=== PATIENT | male | born 1975 | race Caucasian/White ===

== ENCOUNTER 2020-12-17 23:51 | Inpatient (IN) | payer MEDICAID, SELFPAY ==
[~2020-12-17] VITALS: Ht 175.3 cm; Wt 68.0 kg
[2020-12-18] VITALS (10 sets, daily range): BP systolic 118–147; BP diastolic 74–95
[2020-12-18 03:24] LABS: ANION GAP 18.6 (8-16); CARBON DIOXIDE 28.3 mmol/L (21-32); CREATININE 1.4 mg/dL (0.6-1.3)
[2020-12-18 03:26] LABS: POTASSIUM 2.9 mmol/L (3.5-5.1)
[2020-12-18] MEDS ORDERED: POTASSIUM CHLORIDE 20% 40 MEQ/15 ML UDC PO ONE (03:35)
[2020-12-18] MEDS ORDERED: NACL 0.9% 1,000 ML IV ONE (03:35)
[2020-12-18] MEDS ORDERED: KCL 20 MEQ/WATER INJ PREMIX 200 ML IV ONE (03:35)
--- NOTE | 2020-12-18 03:47 | NUR ---
PT TAKEN TO BED 5
--- NOTE | 2020-12-18 03:48 | NUR ---
PT BIBA FOR ETOH. PT WAS BOOKED AND ARRESTED MY [employer]. PT WAS RELEASED AND MEDICALLY CLEARED. PT STATED THAT HE DRANK 2 FIFTHS OF VODKA TODAY. PT GROGGY BUT AAOX4 AND ABLE TO ANSWER QUESTIONS. DENIES ANY PAIN OR DISCOMFORT AT THIS TIME. PMH- HTN, CHIRROSIS NKDA
--- NOTE | 2020-12-18 04:20 | NUR ---
IV ACCESS INSERTED ON L AC G20. MEDS GIVEN ORDERED.
[2020-12-18] MEDS: PROPOFOL 1000 MG/100 ML PREMIX 100 ML IV ONE ×2 (04:40→08:10)
[2020-12-18] MEDS ORDERED: ONDA-24 SL (05:46)
[2020-12-18] MEDS ORDERED: POTA-599 PO (05:46)
--- NOTE | 2020-12-18 06:31 | NUR ---
CODE BLUE INITIATED
--- NOTE | 2020-12-18 06:40 | NUR ---
CODE BLUE INITIATED. BAGGED PATIENT WITH 100% FIO2. PT INTUBATED BY MD DR ORTEGA WITH 7.5 ETT AT 24 CM AT LIP. ETT PLACEMENT CONFIRMED BY END TIDAL COLOR CHANGE, BREATH SOUNDS, AND CHEST RISE. PT ON VENTILATOR WITH CHARTED SETTINGS. VENT CONNECTED TO RED OUTLET. ALARMS AUDIBLE. AMBU BAG AT BEDSIDE. ABG DONE WITH NO INCIDENT. RESULTS GIVEN TO MD JANINA ORTEGA. WILL CONTINUE TO MONITOR PATIENT.
[2020-12-18] MEDS ORDERED: EPINEPHrine 1 MG/ML AMP ONE (06:44)
[2020-12-18] MEDS ORDERED: EPINEPHrine 1 mg/mL 3 MG in DEXTROSE 5% 250 ML IV ONE (06:50)
--- NOTE | 2020-12-18 07:05 | NUR ---
RADIOLOGY AT BEDSIDE FOR ET TUBE AND OG TUBE PLACEMENT CHECK
--- NOTE | 2020-12-18 07:26 | NUR ---
ENDORSED TO SERJIO CONLEY FOR CONTINUITY OF CARE
--- NOTE | 2020-12-18 07:29 | NUR ---
NOTIFIED DR CARO, PT IS NOW MOVING ARMS AND HAVE INVOLUNTARY MUSCLE MOVEMENT. NO ORDERS AT THIS TIME.
[2020-12-18] MEDS ORDERED: PROPOFOL 1000 MG/100 ML PREMIX 100 ML IV ONE ×2 (07:35→10:57)
--- NOTE | 2020-12-18 08:30 | NUR ---
KARISHMA SWABBED AND GIVEN TO MANJINDER CARVALHO
[2020-12-18] MEDS ORDERED: ALBUTEROL SULFATE/IPRATROPIU 3 ML SOL IH PRN (08:50)
[2020-12-18] MEDS ORDERED: DOCUSATE SODIUM 100 MG GELCAP PO PRN (08:50)
[2020-12-18] MEDS ORDERED: ZOLPIDEM 5 MG TAB PO PRN (08:50)
[2020-12-18] MEDS ORDERED: guaiFENesin DM 200/20 MG-10 ML 10 ML UDC PO PRN (08:50)
[2020-12-18] MEDS ORDERED: MORPHINE SULFATE 50 MG in NACL 0.9% 45 ML IV PRN (08:50)
[2020-12-18] MEDS ORDERED: ACETAMINOPHEN 325 MG TAB PO PRN (08:50)
[2020-12-18] MEDS ORDERED: ONDANSETRON 4 MG/2 ML VIAL IM/IVP PRN (08:50)
[2020-12-18] MEDS ORDERED: HYDROcodone/APAP 7.5/325 MG 1 TAB PO PRN (08:50)
[2020-12-18] MEDS: DEXT 5% /NACL 0.9% 1,000 ML IV SCH ×2 (09:38→17:14)
[2020-12-18] MEDS: PANTOPRAZOLE 40 MG INJ VIAL IVP SCH (09:39)
--- NOTE | 2020-12-18 10:53 | NUR ---
VERBAL ORDER TO CHANGE CURRENT PRESSOR TO LEVO AND TO KEEP PROPOFOL
[2020-12-18] MEDS: fentaNYL citrate 1 MG in NACL 0.9% 80 ML IV PRN ×3 (11:08→22:00)
[2020-12-18] MEDS: MIDAZOLAM MDV 50 MG in NACL 0.9% 40 ML IV PRN ×2 (11:21→16:14)
[2020-12-18 11:56] LABS: BASOPHILS # (AUTO) 0.1 K/uL (0.00-0.22); BASOPHILS % (AUTO) 0.7 % (0.0-2.0); EOSINOPHILS % (AUTO) 0.2 % (0.0-4.0); HEMOGLOBIN 10.6 g/dL (12.0-18.0); LYMPHOCYTES # (AUTO) 0.6 K/uL (2.0-11.5); LYMPHOCYTES % (AUTO) 7.7 % (20.5-51.1); MEAN CORPUSCULAR HEMOGLOBIN 23 pg (27-31); MEAN CORPUSCULAR HGB CONC 31 g/dL (33-37); MEAN CORPUSCULAR VOLUME 74.7 fL (80-94); MONOCYTES # (AUTO) 0.5 K/uL (0.8-1.0); MONOCYTES % (AUTO) 7.1 % (1.7-9.3); NEUTROPHILS # (AUTO) 6.1 K/uL (1.8-7.7); NEUTROPHILS % (AUTO) 84.3 % (42.2-75.2); PLATELET COUNT (AUTO) 207 K/uL (140-450); RED BLOOD CELL COUNT(AUTO) 4.55 MIL/uL (4.20-6.10); RED CELL DISTRIBUTION WIDTH 26.2 % (11.6-13.7); WHITE BLOOD COUNT (AUTO) 7.2 K/uL (4.8-10.8)
[2020-12-18 12:25] LABS: PROTHROMBIN TIME 18.1 secs (10.8-13.4)
[2020-12-18] MEDS: ALBUTEROL SULFATE/IPRATROPIU 3 ML SOL IH SCH ×2 (13:00→19:00)
[2020-12-18] MEDS ORDERED: PROPOFOL 200 MG/20 ML VIAL IV SCH (13:05)
--- NOTE | 2020-12-18 13:29 | NUR ---
CALLED LAB, WAITING FOR COAGULATION RESULTS BEFORE ADMIN OF HEPARIN. LAB WILL UPDATE RESULTS.
[2020-12-18 14:07] LABS: FREE T4 (FREE THYROXINE) 0.91 ng/dL (0.76-1.46); PHOSPHORUS 4.4 mg/dL (2.5-4.9); THYROID STIMULATING HORMONE 2.29 uIU/mL (0.34-3.74)
--- NOTE | 2020-12-18 15:10 | NUR ---
Patient will be admitted to care of [facility]. Admited to ICU. Will go to rooM 2. Belongings list completed. Report to SHERRILL CONLEY.
--- NOTE | 2020-12-18 15:26 | NUR ---
MOVED PATIENT ON THE VENT TO ROOM 2 IN ICU. PT REMAINED ON VENT DURING TRANSFER - NO DISTRESS NOTED- PT PLACED ON MONITOR IN ROOM -TOLERATED TRANSFER TO ICU
--- NOTE | 2020-12-18 16:00 | NUR ---
RECEIVED REPORT FROM ER NURSE. ADMITTED 45 Y/O MALE WITH A CC OF ETOH ABUSE. ADMITTING DX OF CARDIAC ARREST, HYPOKALEMIA, ETOH TOXICITY. HX OF HTN, LIVER CIRRHOSIS. VACCINATION STATUS UNKNOWN. PT RASS-3, DRY WEIGHT 68KG. FLACC 0, NO SOB. ETT TO VENT ACVC FIO2 40%, TV 450, R 18, PEEP 5. WITH PERIPHERAL IV RH 22 AND LAC 20G. WITH RIGHT FEMORAL CENTRAL LINE RUNNING PROPOFOL AT 30MCG, FENTANYL AT 1.5MCG, AND VERSED AT 5MCG. INSERTED LEMA CATHETER, DRAINING WELL. SAFETY PRECAUTIONS IN PLACE. CALL LIGHT WITHIN REACH
[2020-12-18] MEDS: PROPOFOL 1000 MG/100 ML PREMIX 100 ML IV PRN ×2 (16:09→22:25)
--- NOTE | 2020-12-18 16:55 | NUR ---
PATIENT HAS BEEN SCREENED AND CATEGORIZED HIGH NUTRITION RISK. PATIENT WILL BE SEEN WITHIN 1-2 DAYS OF ADMISSION. 12/18/20-12/19/[address]
--- NOTE | 2020-12-18 18:24 | NUR ---
LATEST BS 284, ON INSULIN DRIP 0.1U/KG/HR Addendum: 12/18/20 at 1845 by John Haywood RN DISREGARD ABOVE NOTE- WRONG PT
--- NOTE | 2020-12-18 18:45 | NUR ---
RASS-3, NO RESPIRATORY DISTRESS, FLACC 0
--- NOTE | 2020-12-18 19:10 | NUR ---
RECEIVED PATIENT FROM AM SHIFT NURSE FOR CONTINUITY OF CARE. RASS -3. ETT TO VENT. RESPIRATIONS EVEN, UNLABORED. NO S/S RESPIRATORY DISTRESS. OGT NOTED. S1/S2 AUSCULTATED. FLACC 0. SKIN WARM, DRY. NON PITTING EDEMA NOTED TO BILATERAL HANDS. ELEVATED FOR COMFORT. SALINE LOCK TO RIGHT HAND 20G PATENT/INTACT. SALINE LOCK TO LEFT AC 20 PATENT/INTACT. RIGHT FEMORAL ACCESS NOTED, INFUSING PROPOFOL, VERSED AND FENTANYL WELL. ABDOMEN SOFT, NONTENDER, NONDISTENDED. BOWEL SOUNDS ACTIVE x4 QUADRANTS. LEMA CATHETER PATENT WITH YELLOW URINE DRAINING TO GRAVITY. PATIENT IS CLEAN/DRY. PLAN OF CARE DISCUSSED. SAFETY PRECAUTIONS IN PLACE.
--- NOTE | 2020-12-18 21:37 | NUR ---
DUE MEDS GIVEN. NO S/S RESPIRATORY DISTRESS. FLACC 0. PATIENT IS CLEAN/DRY.
--- NOTE | 2020-12-18 23:00 | NUR ---
TURNED AND REPOSITIONED FOR COMFORT. NO S/S RESPIRATORY DISTRESS. FLACC 0. PATIENT IS CLEAN/DRY. SAFETY PRECAUTIONS IN PLACE. FREQUENT MONITORING BY ALL STAFF.
[2020-12-19] VITALS (18 sets, daily range): BP systolic 16–136; BP diastolic 34–94
[2020-12-19] MEDS: ALBUTEROL SULFATE/IPRATROPIU 3 ML SOL IH SCH ×4 (00:54→19:00)
--- NOTE | 2020-12-19 01:00 | NUR ---
VAP ORAL CARE RENDERED. NO S/S RESPIRATORY DISTRESS. FLACC 0. PATIENT IS CLEAN/DRY. SAFETY PRECAUTIONS IN PLACE. FREQUENT MONITORING BY ALL STAFF.
[2020-12-19] MEDS: DEXT 5% /NACL 0.9% 1,000 ML IV SCH ×2 (02:17→10:18)
--- NOTE | 2020-12-19 03:16 | NUR ---
RT AT BEDSIDE. NO S/S RESPIRATORY DISTRESS. FLACC 0. PATIENT IS CLEAN/DRY. SAFETY PRECAUTIONS IN PLACE. FREQUENT MONITORING BY ALL STAFF.
[2020-12-19] MEDS: MIDAZOLAM MDV 50 MG in NACL 0.9% 40 ML IV PRN (04:29)
--- NOTE | 2020-12-19 05:09 | NUR ---
ALL NEEDS ANTICIPATED AND MET. NO S/S RESPIRATORY DISTRESS. FLACC 0. PATIENT IS CLEAN/DRY. SAFETY PRECAUTIONS IN PLACE.
[2020-12-19] MEDS: PROPOFOL 1000 MG/100 ML PREMIX 100 ML IV PRN (06:37)
[2020-12-19 07:07] LABS: BASOPHILS # (AUTO) 0.1 K/uL (0.00-0.22); EOSINOPHILS # (AUTO) 0.1 K/uL (0-0.4); EOSINOPHILS % (AUTO) 0.9 % (0.0-4.0); HEMATOCRIT 31.2 % (36-52); HEMOGLOBIN 9.9 g/dL (12.0-18.0); LYMPHOCYTES # (AUTO) 0.5 K/uL (2.0-11.5); LYMPHOCYTES % (AUTO) 8.1 % (20.5-51.1); MEAN CORPUSCULAR HEMOGLOBIN 24 pg (27-31); MEAN CORPUSCULAR HGB CONC 32 g/dL (33-37); MONOCYTES # (AUTO) 0.6 K/uL (0.8-1.0); MONOCYTES % (AUTO) 8.7 % (1.7-9.3); NEUTROPHILS # (AUTO) 5.5 K/uL (1.8-7.7); NEUTROPHILS % (AUTO) 81.3 % (42.2-75.2); PLATELET COUNT (AUTO) 162 K/uL (140-450); RED CELL DISTRIBUTION WIDTH 25.8 % (11.6-13.7); WHITE BLOOD COUNT (AUTO) 6.7 K/uL (4.8-10.8)
--- NOTE | 2020-12-19 07:30 | NUR ---
RECEIVED REPORT FROM EMERGENCY RESPONSE TECHNICIAN NURSE. 45 Y/O MALE WITH A CC OF ETOH ABUSE. ADMITTING DX OF CARDIAC ARREST, HYPOKALEMIA, ETOH TOXICITY. HX OF HTN, LIVER CIRRHOSIS. VACCINATION STATUS UNKNOWN. PT RASS-1, DRY WEIGHT 68KG. AWAKE, ALERT AND FOLLOWS COMMANDS. FLACC 0, NO SOB. ETT TO VENT ACVC FIO2 40%, TV 450, R 18, PEEP 5. WITH PERIPHERAL IV RH 22 AND LAC 20G. WITH RIGHT FEMORAL CENTRAL LINE RUNNING PROPOFOL AT 30MCG, FENTANYL AT 1.5MCG, AND VERSED AT 5MCG. LEMA CATHETER DRAINING WELL. PLAN FOR SEDATION VACATION TODAY. SAFETY PRECAUTIONS IN PLACE. CALL LIGHT WITHIN REACH
[2020-12-19 07:40] LABS: ALBUMIN 3.3 g/dL (3.4-5.0); ANION GAP 13.4 (8-16); CARBON DIOXIDE 29.5 mmol/L (21-32); CREATININE 0.7 mg/dL (0.6-1.3); TOTAL BILIRUBIN 0.7 mg/dL (0.0-1.0)
[2020-12-19 08:01] LABS: POTASSIUM 2.9 mmol/L (3.5-5.1)
--- NOTE | 2020-12-19 08:45 | NUR ---
DUE MEDS GIVEN
--- NOTE | 2020-12-19 09:10 | NUR ---
SEDATION VACATION STARTED. ON CPAP
[2020-12-19] MEDS: PANTOPRAZOLE 40 MG INJ VIAL IVP SCH (09:23)
[2020-12-19 10:06] LABS: T4 (THYROXINE) 6.8 ug/dL (4.5-12.0)
--- NOTE | 2020-12-19 10:15 | NUR ---
PT SELF EXTUBATED. RT AT BEDSIDE, SATURATING 95-99% ON ROOM AIR. DR SANTANA NOTIFIED. NO NEW ORDERS
[2020-12-19] MEDS: POTASSIUM CHLORIDE 40 MEQ, LIDOCAINE MPF 1% 25 MG in NACL 0.9% 250 ML IV PRN (10:19)
[2020-12-19] MEDS: DEXT 5% / NACL 0.45% 1,000 ML IV SCH ×2 (11:35→21:30)
--- NOTE | 2020-12-19 12:45 | NUR ---
BEDSIDE SWALLOW EVAL DONE. PT ABLE TO SWALLOW PUDDING, APPLE SAUCE AND THIN LIQUIDS WITHOUT DIFFICULTY
--- NOTE | 2020-12-19 13:40 | NUR ---
12/19/20 RD INITIAL ASSESSMENT COMPLETED PLEASE REFER TO NUTRITION ASSESSMENT UNDER CARE ACTIVITY FOR ESTIMATED NUTRITIONAL NEEDS. RD RECOMMENDATIONS: 1. CONTINUE NPO MEDICALLY APPROPRIATE. 2. IF/WHEN PT IS MEDICALLY STABLE TO INITIATE ORAL INTAKE, CONSIDER LOW SODIUM DIET WITH TEXTURE RECOMMENDATIONS PER TRANSCRIBING OPERATOR HEAD. 3. IF PT WILL NEED NUTRITION SUPPORT, CONSIDER OSMOLITE 1.5 AT 60 ML/HR, START AT 30 ML/HR AND ADVANCE TOLERATED TO GOAL RATE. - AT GOAL RATE, TUBE FEEDING WILL PROVIDE 2160 KCAL AND 90 GM PROTEIN, ADEQUATE TO MEET 100% OF ESTIMATED NUTRITIONAL NEEDS. 4. RD WILL F/U 2-3 DAYS; HIGH RISK. SUZANNE MONTANEZ, RD
[2020-12-19] MEDS ORDERED: LORazepam 2 MG/ML VIAL IM/IVP PRN (18:10)
[2020-12-19] MEDS: LACTULOSE 20 GM/30 ML UDC PO SCH (18:17)
--- NOTE | 2020-12-19 18:30 | NUR ---
PT EATING DINNER. TOLERATING FU LIQUID DIET, NO SOB ,NO C/O PAIN
--- NOTE | 2020-12-19 19:10 | NUR ---
RECEIVED PATIENT FROM AM SHIFT NURSE FOR CONTINUITY OF CARE. ALERT AND ABLE TO MAKE NEEDS KNOWN. RESPIRATIONS EVEN, UNLABORED. NO S/S RESPIRATORY DISTRESS. S1/S2 AUSCULTATED. SKIN WARM, DRY. RIGHT FEMORAL ACCESS TRIPLE LUMEN PATENT, INFUSING FLUIDS WELL. DRESSING CLEAN/DRY/INTACT. SALINE LOCK TO RIGHT HAND 20G PATENT/INTACT. SALINE LOCK TO LEFT AC 20G PATENT/INTACT. DENIES PAIN. ABDOMEN SOFT, NONTENDER, NONDISTENDED. BOWEL SOUNDS ACTIVE x4 QUADRANTS. PATIENT IS CONTINENT OF B/B. PLAN OF CARE DISCUSSED. SAFETY PRECAUTIONS IN PLACE.
--- NOTE | 2020-12-19 21:30 | NUR ---
DUE MEDS GIVEN. NO S/S RESPIRATORY DISTRESS. NO C/O PAIN. PATIENT IS CLEAN/DRY. CALL LIGHT IN REACH.
--- NOTE | 2020-12-19 23:49 | NUR ---
PATIENT IS WATCHING TV. NO S/S RESPIRATORY DISTRESS. NO C/O PAIN. PATIENT IS CLEAN/DRY. CALL LIGHT IN REACH.
[2020-12-20] VITALS (14 sets, daily range): BP systolic 86–147; BP diastolic 60–100
[2020-12-20] MEDS: ALBUTEROL SULFATE/IPRATROPIU 3 ML SOL IH SCH (01:00)
--- NOTE | 2020-12-20 01:30 | NUR ---
MADE ROUNDS. PATIENT IS ASLEEP. NO S/S RESPIRATORY DISTRESS. PATIENT IS CLEAN/DRY. CALL LIGHT IN REACH.
--- NOTE | 2020-12-20 05:33 | NUR ---
PATIENT IS WATCHING TV. NO S/S RESPIRATORY DISTRESS. NO C/O PAIN. PATIENT IS CLEAN/DRY. CALL LIGHT IN REACH.
[2020-12-20 06:45] LABS: BASOPHILS % (AUTO) 0.6 % (0.0-2.0); EOSINOPHILS # (AUTO) 0.1 K/uL (0-0.4); EOSINOPHILS % (AUTO) 2.4 % (0.0-4.0); HEMATOCRIT 29.4 % (36-52); HEMOGLOBIN 9.3 g/dL (12.0-18.0); LYMPHOCYTES # (AUTO) 0.9 K/uL (2.0-11.5); LYMPHOCYTES % (AUTO) 14.4 % (20.5-51.1); MEAN CORPUSCULAR HEMOGLOBIN 24 pg (27-31); MEAN CORPUSCULAR HGB CONC 32 g/dL (33-37); MEAN CORPUSCULAR VOLUME 76.5 fL (80-94); MONOCYTES # (AUTO) 0.6 K/uL (0.8-1.0); MONOCYTES % (AUTO) 10.1 % (1.7-9.3); NEUTROPHILS # (AUTO) 4.4 K/uL (1.8-7.7); NEUTROPHILS % (AUTO) 72.5 % (42.2-75.2); PLATELET COUNT (AUTO) 184 K/uL (140-450); RED BLOOD CELL COUNT(AUTO) 3.84 MIL/uL (4.20-6.10); RED CELL DISTRIBUTION WIDTH 25.8 % (11.6-13.7); WHITE BLOOD COUNT (AUTO) 6.1 K/uL (4.8-10.8)
--- NOTE | 2020-12-20 07:12 | NUR ---
ENDORSED PATIENT TO AM SHIFT NURSE FOR CONTINUITY OF CARE.
[2020-12-20] MEDS: DEXT 5% / NACL 0.45% 1,000 ML IV SCH (07:30)
--- NOTE | 2020-12-20 07:30 | NUR ---
RECRIVED REPORT FROM DIEGO CONLEY PT IS AWAKE AND ALERT IN VAL DENIED PAIN, IV FLUIRON LT.GOINT INFUSIND D5 0,45 NS . ON ROOM AIR O2 SAT 99% LEMA CATH DRAIN CLEAR TONY URINE.
[2020-12-20 07:57] LABS: ANION GAP 13.9 (8-16); CARBON DIOXIDE 25.9 mmol/L (21-32); CREATININE 0.7 mg/dL (0.6-1.3); TOTAL BILIRUBIN 1.1 mg/dL (0.0-1.0)
[2020-12-20] MEDS: LACTULOSE 20 GM/30 ML UDC PO SCH (09:00)
[2020-12-20] MEDS: PANTOPRAZOLE 40 MG INJ VIAL IVP SCH (09:00)
[2020-12-20] MEDS ORDERED: MULTIVITAMIN 1 TAB PO SCH (09:00)
[2020-12-20] MEDS ORDERED: THIAMINE 100 MG TAB PO SCH (09:00)
[2020-12-20] MEDS ORDERED: FOLIC ACID 1 MG TAB PO SCH (09:00)
[2020-12-20] MEDS: chlordiazePOXIDE 25 MG CAP PO SCH ×3 (09:00→17:00)
[2020-12-20 10:17] LABS: POTASSIUM 2.8 mmol/L (3.5-5.1)
--- NOTE | 2020-12-20 11:00 | NUR ---
Yemi CALDERON ORDERED.
[2020-12-20] MEDS: POTASSIUM CHLORIDE 40 MEQ, LIDOCAINE MPF 1% 25 MG in NACL 0.9% 250 ML IV PRN (11:30)
--- NOTE | 2020-12-20 11:40 | NUR ---
K RIDER 40MEQ IVP IN PROGRESS AND K DUR 40 MEQ PO GIVEN ORDERED.
--- NOTE | 2020-12-20 12:30 | NUR ---
LUNCH TAKE IT WELL
[2020-12-20] MEDS ORDERED: POTASSIUM CHLORIDE 10 MEQ TABER PO SCH (12:50)
--- NOTE | 2020-12-20 17:00 | NUR ---
LAB FOR CHEM 7 WAS DONE.
[2020-12-20 17:19] LABS: CARBON DIOXIDE 28.1 mmol/L (21-32); CREATININE 0.7 mg/dL (0.6-1.3); POTASSIUM 4.1 mmol/L (3.5-5.1)
[2020-12-20] MEDS ORDERED: PANT40EC PO (18:00)
[2020-12-20] MEDS ORDERED: THIA-34 PO (18:00)
[2020-12-20] MEDS ORDERED: FOLI1TAB90 PO (18:00)
[2020-12-20] MEDS ORDERED: MULT-405 PO (18:00)
--- NOTE | 2020-12-20 18:10 | NUR ---
RECEIVE THE RESULT O POTASSIUM IS 4.1 DR SANTANA INFORM AND HE D/C PATIENT TO SELF CARE.
--- NOTE | 2020-12-20 19:15 | NUR ---
PT IS READY TO GO HOME IN [facility] GIVE PT.THE HOME REST RESOURCE PACKAGE AND 2 BUS PASS, AND FOOD AND DRINK,CALL SECURITY TO TAKE HIM TOBUS STATION.
== END 2020-12-20 19:30 | disposition home or self-care (01) | DRG 133 ==
LOC: MED 23:51 → MIC 12-18 14:44
PROVIDERS: ADMIT Family Medicine; ATTEND Family Medicine
PROC: 5A1945Z Respiratory Ventilation, 24-96 Consecutive Hours (ICD-10-PCS; principal; 2020-12-18)
PROC: 0BH17EZ Insertion of Endotracheal Airway into Trachea, Via Natural or Artificial Opening (ICD-10-PCS; 2020-12-18)
PROC: 06HY33Z Insertion of Infusion Device into Lower Vein, Percutaneous Approach (ICD-10-PCS; 2020-12-18)
PROC: B54BZZA Ultrasonography of Right Lower Extremity Veins, Guidance (ICD-10-PCS; 2020-12-18)
PROC: 5A12012 Performance of Cardiac Output, Single, Manual (ICD-10-PCS; 2020-12-18)
DX: J96.00 Acute respiratory failure, unspecified whether with hypoxia or hypercapnia (principal); I46.9 Cardiac arrest, cause unspecified; N17.0 Acute kidney failure with tubular necrosis; G92 Toxic encephalopathy; E44.1 Mild protein-calorie malnutrition; E72.20 Disorder of urea cycle metabolism, unspecified; E87.6 Hypokalemia; K72.90 Hepatic failure, unspecified without coma; D68.9 Coagulation defect, unspecified; E87.0 Hyperosmolality and hypernatremia; F10.129 Alcohol abuse with intoxication, unspecified; D50.9 Iron deficiency anemia, unspecified; I10 Essential (primary) hypertension; Z20.822 Contact with and (suspected) exposure to COVID-19; K74.60 Unspecified cirrhosis of liver; Y90.9 Presence of alcohol in blood, level not specified; R00.2 Palpitations; Z71.41 Alcohol abuse counseling and surveillance of alcoholic
CPT/HCPCS: 31500; 36415; 36556; 71045; 80048; 80053; 82140; 82150; 83036; 83690; 83735; 83880; 84100; 84436; 84439; 84443; 84479; 84484; 85025; 85610; 85730; 87081; 92950; 93005; 94002; 94003; 94640; 96361; 96365; 96375; 99285; C9113; J0171; J1644; J2001; J2250; J2704; J3010; J3480; J7030; J7060; Q0092